=== PATIENT | female | born 1940 | race Caucasian/White ===

== ENCOUNTER 2021-06-14 09:40 | Inpatient (IN) ==
[2021-06-14 10:35] LABS: Basophils % 0.4 % (0.0-0.8); Eosinophils # 0.1 10*3/uL (0.0-0.87); Eosinophils % 1.4 % (0.00-10.9); Hemoglobin 13.8 GM/DL (12.0-16.0); Immature Granulocytes % 0.3 %; Immature Granulocytes Absolute 0.03 #; Lymphocytes # 3.8 10*3/uL (1.4-4.0); Lymphocytes % 36.8 % (21.3-54.2); Mean Corpuscular HGB Conc 33.7 GM/DL (32-36); Mean Platelet Volume 9.5 FL (9.6-12.0); Monocytes % 9.1 % (1.7-12.7); Platelet Count 267 T/CUMM (130-400); Red Blood Count 4.27 MC/CUMM (3.8-5.5); Red Cell Distribution Width 12.7 % (9.3-17.3); White Blood Count 10.2 T/CUMM (4-12)
[2021-06-14] MEDS ORDERED: MAGNESIUM SULF RIDER 4 GM/100 ML PREMIX IV PRN (10:40)
[2021-06-14] MEDS ORDERED: MORPHINE 2 MG/1 ML SYRINGE IV PRN (10:40)
[2021-06-14] MEDS ORDERED: ONDANSETRON 4 MG/2 ML VIAL IV PRN (10:40)
[2021-06-14] MEDS ORDERED: ZALEPLON 5 MG CAPSULE PO PRN (10:40)
[2021-06-14] MEDS ORDERED: SIMETHICONE CHEW 125 MG TABLET PO PRN (10:40)
[2021-06-14] MEDS ORDERED: diphenhydrAMINE CAP 25 MG CAPSULE PO PRN (10:40)
[2021-06-14] MEDS ORDERED: MAGNESIUM SULF RIDER 2 GM/50 ML PREMIX IV PRN (10:40)
[2021-06-14 11:06] LABS: Albumin 3.8 G/DL (3.4-5.0); Bilirubin,Total 0.5 MG/DL (0.20-1.00); Calcium 9.5 MG/DL (8.5-10.1); Osmolality,Calculated 276.8 MOS/KG (273-304); Potassium 2.8 MMOL/L (3.5-5.1); Total Protein 7.4 G/DL (6.4-8.2)
[2021-06-14] MEDS ORDERED: hydrALAZINE 20 MG/1 ML VIAL IV PRN (11:07)
[2021-06-14] MEDS ORDERED: POTASSIUM CHLORIDE 20 MEQ TABLET PO ONE (12:01)
[2021-06-14] MEDS: ENOXAPARIN 40 MG/0.4 ML SYRINGE SUBCUT SCH (12:20)
[2021-06-14] MEDS: ASPIRIN EC 81 MG TABLET PO SCH (12:33)
[2021-06-14] MEDS: hydroCHLOROthiazide 25 MG TABLET PO SCH (12:33)
[2021-06-14] MEDS: ACETAMINOPHEN 325 MG TABLET PO PRN ×2 (16:26→23:59)
[2021-06-14] MEDS: ATORVASTATIN 80 MG TABLET PO SCH (22:19)
[2021-06-14] MEDS: CETIRIZINE 10 MG TABLET PO SCH (22:19)
[2021-06-15] MEDS ORDERED: SODIUM CHLORIDE 0.9% 1,000 ML IV SCH (04:00)
[2021-06-15 05:49] LABS: Basophils % 0.4 % (0.0-0.8); Eosinophils # 0.2 10*3/uL (0.0-0.87); Eosinophils % 1.9 % (0.00-10.9); Hemoglobin 12.1 GM/DL (12.0-16.0); Immature Granulocytes % 0.3 %; Immature Granulocytes Absolute 0.03 #; Lymphocytes # 5.2 10*3/uL (1.4-4.0); Mean Corpuscular HGB Conc 32.7 GM/DL (32-36); Mean Corpuscular Volume 98.7 FL (87-102); Mean Platelet Volume 9.9 FL (9.6-12.0); Monocytes % 10.7 % (1.7-12.7); Neutrophils % 35.7 % (38.7-73.9); Platelet Count 292 T/CUMM (130-400); Red Blood Count 3.75 MC/CUMM (3.8-5.5); Red Cell Distribution Width 13.1 % (9.3-17.3); White Blood Count 10.2 T/CUMM (4-12)
[2021-06-15] MEDS ORDERED: ceFAZolin 1,000 MG VIAL IRRIG ONE ×2 (06:00→07:00)
[2021-06-15 06:18] LABS: Albumin 3.1 G/DL (3.4-5.0); Bilirubin,Total 0.8 MG/DL (0.20-1.00); Osmolality,Calculated 278.8 MOS/KG (273-304); Potassium 2.8 MMOL/L (3.5-5.1); Total Protein 6.6 G/DL (6.4-8.2)
[2021-06-15 06:19] LABS: Eosinophils 1 % (0-10); Lymphocytes 44 % (20-55); Platelet Estimate Normal; Segmented Neutrophils 44 % (50-85); Total Cells Counted 100
[2021-06-15] MEDS ORDERED: HEPARIN/NACL 0.9% 2 UNITS/ML 1,000 UNIT/500 ML BAG IV ONE (06:46)
[2021-06-15] MEDS ORDERED: LIDOCAINE 1%/EPI INJ 20 ML VIAL ONE (06:46)
[2021-06-15] MEDS ORDERED: MIDAZOLAM 2 MG/2 ML VIAL ONE (07:12)
[2021-06-15] MEDS ORDERED: fentaNYL 100 MCG/2 ML VIAL ONE (07:12)
[2021-06-15] MEDS: ASPIRIN EC 81 MG TABLET PO SCH (09:01)
[2021-06-15] MEDS: PANTOPRAZOLE 40 MG TABLET PO SCH (09:01)
[2021-06-15] MEDS: hydroCHLOROthiazide 25 MG TABLET PO SCH (09:01)
[2021-06-15] MEDS: ACETAMINOPHEN 325 MG TABLET PO PRN ×2 (10:49→20:51)
[2021-06-15] MEDS: ENOXAPARIN 40 MG/0.4 ML SYRINGE SUBCUT SCH (12:08)
[2021-06-15] MEDS: POTASSIUM CHLORIDE 20 MEQ TABLET PO PRN ×2 (14:08→17:13)
[2021-06-15] MEDS: CETIRIZINE 10 MG TABLET PO SCH (20:51)
[2021-06-15] MEDS: ATORVASTATIN 80 MG TABLET PO SCH (20:51)
[2021-06-16] MEDS: ACETAMINOPHEN 325 MG TABLET PO PRN ×2 (04:06→11:07)
[2021-06-16] MEDS ORDERED: FUROSEMIDE 40 MG TABLET PO PRN (07:00)
[2021-06-16] MEDS: ASPIRIN EC 81 MG TABLET PO SCH (08:10)
[2021-06-16] MEDS: hydroCHLOROthiazide 25 MG TABLET PO SCH (08:11)
[2021-06-16] MEDS: PANTOPRAZOLE 40 MG TABLET PO SCH (08:11)
[2021-06-16] MEDS ORDERED: CLOPIDOGREL 75 MG TABLET PO SCH (09:00)
[2021-06-16] MEDS ORDERED: METOPROLOL SUCCINATE XL 25 MG TABLET PO SCH (09:00)
[2021-06-16 12:23] VITALS: BP 132/48
[2021-06-18] MEDS ORDERED: ROSUVASTATIN 10 MG TABLET PO SCH (09:00)
== END 2021-06-16 13:50 | disposition home or self-care (01) | DRG 244 ==
LOC: N.ED 09:40 → N.EDINP 10:40 → N.TELES 11:15
PROVIDERS: ADMIT Internal Medicine Interventional Cardiology; ATTEND Internal Medicine Interventional Cardiology